=== PATIENT | female | born 1990 | race American Indian/Alaskan Native ===

== ENCOUNTER 2021-12-08 10:49 | Emergency (ER) | payer SELFPAY ==
[2021-12-08 10:53] VITALS: BP 250/110
--- NOTE | 2021-12-08 12:47 | Emergency Department Report ---
ED Back Pain/Injury HPI - General Chief Complaint: Back Pain/Injury Stated Complaint: BACK PAIN Time Seen by Provider: 12/08/21 11:54 Source: patient, EMS Limitations: No Limitations - History of Present Illness Initial Comments: This is a 31-year-old female with no known past medical history presents ED today complaining of lower back pain status post slip and fall from ground-level while she was at the store today. Patient states this happened about an hour prior to arrival to the ED. Patient states she has been feeling muscle spasms and pain radiating down her right thigh posteriorly. Patient states that she has not had muscle spasms in a few years and she knows what this feels like. Patient notes that she is unsure of her last menstrual period could be possible . She denies any head injury, loss of consciousness at incident. She denies chest pain, shortness of breath, dizziness or inability to walk. MD Complaint: back pain, fall Similar Symptoms Previously: No Place: other - Related Data Allergies Allergy/AdvReac Type Severity Reaction Status Date / Time lisinopril AdvReac Angioedema Verified 12/08/21 10:53 ED Review of Systems ROS: Stated complaint: BACK PAIN Other details as noted in HPI Comment: All other systems reviewed and negative ED Physical Exam - General Limitations: No Limitations General appearance: alert, in no apparent distress - Head Head exam: Present: atraumatic, normocephalic - Eye Eye exam: Present: normal appearance, PERRL - ENT ENT exam: Present: mucous membranes moist - Neck Neck exam: Present: normal inspection - Respiratory Respiratory exam: Present: normal lung sounds bilaterally. Absent: respiratory distress - Cardiovascular Cardiovascular Exam: Present: regular rate, normal rhythm. Absent: systolic murmur, diastolic murmur, rubs, gallop - GI/Abdominal GI/Abdominal exam: Present: soft, normal bowel sounds - Extremities Exam Extremities exam: Present: normal inspection, full ROM. Absent: tenderness - Back Exam Back exam: Present: normal inspection, full ROM, tenderness (To palpation of the latissimus dorsi muscles. Mild spinal tenderness to the lumbar region.), muscle spasm, paraspinal tenderness, other (No swelling of the lower back, no erythema, no lesions and no ecchymosis.). Absent: CVA tenderness (R), CVA tenderness (L), rash noted - Neurological Exam Neurological exam: Present: alert, oriented X3 - Psychiatric Psychiatric exam: Present: normal affect, normal mood - Skin Skin exam: Present: warm, dry, intact, normal color. Absent: rash ED Course Vital Signs 12/08/21 10:51 Temperature 98.2 F Pulse Rate 96 H Respiratory 14 Rate Blood Pressure 250/110 [Left] O2 Sat by Pulse 97 Oximetry ED Medical Decision Making - Medical Decision Making This 31-year-old female presents to the ED status post ground-level fall complaining of low back pain. Due to patient unsure status test ordered. test pending. Upon reevaluation patient states she is in pain I offered Tylenol prior to test pending. Patient states that she will wait. At 3:40 PM patient stormed out of the room upset and yelling stating that the dobby loom weaver just came back into the room stating that her blood sample was lost and needed to be redrawn. Patient was upset at the fact that her blood sample was lost and that she had to be redrawn. Patient states that she was not willing to wait she stormed out angrily and refused to sign any paperwork. Patient was very loud and using profanity until security was called. Critical care attestation.: If time is entered above; I have spent that time in minutes in the direct care of this critically ill patient, excluding procedure time. ED Disposition Clinical Impression: Strain of muscle, fascia and tendon of lower back, initial encounter, Fall from ground level Disposition: 07 LEFT AWOL/ELOPED Is pt being admited?: No Does the pt Need Aspirin: No Condition: Stable Additional Instructions: Make sure to follow up with the primary care physician as discussed. Take all your medications as you've been prescribed. If you have any worsening symptoms or develop new symptoms please return to ED immediately. Referrals: CHARLIE HOWE MD [Primary Care Provider] - 3-5 Days
[2021-12-08 13:45] LABS: Bilirubin,Urine NEG (Negative); Blood,Urine NEG (Negative); Color,Urine Straw (Yellow); Protein,Urine <15 mg/dL mg/dL (Negative); Urobilinogen,Urine < 2.0 mg/dL (<2.0)
[2021-12-08 13:52] LABS: RBC,Urine < 1.0 /HPF (0.0-6.0)
== END 2021-12-08 14:00 | disposition left against medical advice (07) ==
LOC: ED 10:49
DX: S39.012A Strain of muscle, fascia and tendon of lower back, initial encounter (principal); Z88.8 Allergy status to other drugs, medicaments and biological substances; Z79.899 Other long term (current) drug therapy; W18.39XA Other fall on same level, initial encounter; Y93.89 Activity, other specified; Y92.89 Other specified places as the place of occurrence of the external cause; Y99.8 Other external cause status
CPT/HCPCS: 36415; 81001; 99283